=== PATIENT | male | born 1965 | race American Indian/Alaskan Native ===

== ENCOUNTER 2021-09-05 18:41 | Emergency (ER) | payer SELFPAY ==
[2021-09-06 01:39] VITALS: BP 218/113
[2021-09-06] MEDS ORDERED: IBUPROFEN 600 MG TAB PO ONE (02:04)
[2021-09-06] MEDS ORDERED: predniSONE 20 MG TAB PO ONE (02:04)
[2021-09-06] MEDS ORDERED: HYDROcodone/ACETAMINOPHEN 7.5-325MG TAB PO ONE (02:04)
[2021-09-06] MEDS ORDERED: ONDANSETRON 4 MG ODT TAB PO ONE (02:05)
[2021-09-06 02:48] LABS: Basophils # (Auto) 0.1 K/mm3 (0.0-0.1); Basophils % (Auto) 0.5 % (0.0-1.8); Eosinophils # (Auto) 0.1 K/mm3 (0.0-0.4); Eosinophils % (Auto) 0.5 % (0.0-4.3); Hematocrit 39.9 % (35.5-45.6); Hemoglobin 13.4 gm/dl (11.8-15.2); Lymphocytes % (Auto) 7.9 % (13.4-35.0); Mean Corpuscular HGB Conc 34 % (32-34); Mean Corpuscular Volume 92 fl (84-94); Monocytes # (Auto) 1.5 K/mm3 (0.0-0.8); Monocytes % (Auto) 12.3 % (0.0-7.3); Platelet Count 436 K/mm3 (140-440); Red Blood Count 4.35 M/mm3 (3.65-5.03); Red Cell Distribution Width 14.8 % (13.2-15.2)
[2021-09-06 03:24] LABS: Albumin 3.4 g/dL (3.9-5); Calcium 8.8 mg/dL (8.4-10.2)
[2021-09-06 03:58] LABS: Uric Acid 9.9 mg/dL (3.5-7.6)
--- NOTE | 2021-09-06 04:53 | XRay Report ---
LEFT KNEE 3 VIEW INDICATION / CLINICAL INFORMATION: Pain - chronic. COMPARISON: None available. FINDINGS: BONES / JOINT(S): No acute fracture or subluxation. Mild osteoarthritis. Small joint effusion. SOFT TISSUES: No significant abnormality. ADDITIONAL FINDINGS: None. IMPRESSION: 1. No acute findings. Signer Name: Olegario Hernandez MD Signed: 09/06/2021 4:49 AM Workstation Name: [id number]
--- NOTE | 2021-09-06 04:54 | XRay Report ---
LEFT ANKLE 3 VIEWS INDICATION / CLINICAL INFORMATION: pain, swelling. COMPARISON: None available. FINDINGS: BONES / JOINT(S): No acute fracture or subluxation. Previous fixation of the distal fibula and high a nkle sprain fixation. Moderate DJD in the tibiotalar articulation. SOFT TISSUES: No significant abnormality. ADDITIONAL FINDINGS: None. IMPRESSION: 1. No acute findings. Signer Name: Olegario Hernandez MD Signed: 09/06/2021 4:49 AM Workstation Name: [id number]
--- NOTE | 2021-09-06 05:40 | Emergency Department Report ---
ED Extremity Problem HPI - General Chief complaint: Extremity Problem,Nontraumatic Stated complaint: LEFT LEG PAIN Source: patient Mode of arrival: Wheelchair Limitations: Physical Limitation - History of Present Illness Initial comments: Patient is a 56-year-old -[place] male with a history of hypertension, CKD, chronic gouty arthropathy and chronic osteoarthritis who presents to the ED with complaint of acute exacerbation of his chronic osteoarthritis and gouty arthropathy characterized by left knee joint pain, left ankle pain and swelling for the last 1 week, worse in the last 2 days. Patient states that he is unable to bear weight on the left leg because of worsening left ankle and left knee pain. Patient denies traumatic injury, fall, dizziness, syncope, chest pain or shortness of breath, nausea and vomiting, fever, chills, back pain, hip pain, heavy lifting or nausea and vomiting. MD Complaint: extremity pain (Left knee and left ankle pain and swelling), extremity swelling, joint swelling (Left knee and left ankle pain and swelling), joint paint (Left ankle pain and swelling) -: Gradual, year(s) (2) Location: left, lower extremity (Left ankle and knee pain), knee, other (Left ankle and knee pain) History of Same: Yes (Chronic gout and osteoarthritis) -: No myalgia, Yes arthralgia (Left knee and ankle pain), No fever, No associated dyspnea, No associated chest pain Severity scale (0 -10): 8 Quality: aching, sharp Consistency: constant Improves with: nothing Worsens with: weight bearing, walking, exertion, palpation Associated Symptoms: denies other symptoms, arthralgias (Right knee and ankle pain). denies: chest pain, shortness of breath, fever, myalgias - Related Data Previous Rx's Medication Instructions Recorded Last Taken Type cloNIDine [Catapres] 0.1 mg PO BID #60 tablet 03/02/14 Unknown Rx Acetaminophen [Tylenol] 500 mg PO Q6HR PRN #60 tablet 09/06/21 Unknown Rx Colchicine [Colcrys] 0.6 mg PO DAILY #30 tab 09/06/21 Unknown Rx predniSONE [Deltasone] 60 mg PO QDAY #15 tab 09/06/21 Unknown Rx traMADoL [Ultram] 50 mg PO Q6HR PRN #12 tablet 09/06/21 Unknown Rx Allergies Allergy/AdvReac Type Severity Reaction Status Date / Time No Known Allergies Allergy Unverified 03/02/14 16:06 ED Review of Systems ROS: Stated complaint: LEFT LEG PAIN Other details as noted in HPI Constitutional: denies: chills, fever Eyes: denies: eye pain, eye discharge, vision change ENT: denies: ear pain, throat pain Respiratory: denies: cough, shortness of breath, wheezing Cardiovascular: denies: chest pain, palpitations Endocrine: no symptoms reported Gastrointestinal: denies: abdominal pain, nausea, vomiting, diarrhea Genitourinary: denies: urgency, dysuria Musculoskeletal: joint swelling (Left knee and ankle pain and swelling), arthralgia (Left knee and ankle pain with swelling). denies: back pain Skin: denies: rash, lesions Neurological: denies: headache, weakness, paresthesias Psychiatric: denies: anxiety, depression Hematological/Lymphatic: denies: easy bleeding, easy bruising ED Past Medical Hx - Past Medical History Hx Hypertension: Yes Hx Renal Disease: Yes (CKD stage II) Hx Arthritis: Yes Additional medical history: Gouty arthropathy - Social History Smoking Status: Never Smoker Substance Use Type: None - Medications Home Medications: Home Medications Medication Instructions Recorded Confirmed Last Taken Type cloNIDine [Catapres] 0.1 mg PO BID #60 tablet 03/02/14 Unknown Rx Acetaminophen [Tylenol] 500 mg PO Q6HR PRN #60 tablet 09/06/21 Unknown Rx Colchicine [Colcrys] 0.6 mg PO DAILY #30 tab 09/06/21 Unknown Rx predniSONE [Deltasone] 60 mg PO QDAY #15 tab 09/06/21 Unknown Rx traMADoL [Ultram] 50 mg PO Q6HR PRN #12 tablet 09/06/21 Unknown Rx ED Physical Exam - General Limitations: No Limitations, Physical Limitation General appearance: alert, in no apparent distress - Head Head exam: Present: atraumatic, normocephalic, normal inspection - Eye Eye exam: Present: normal appearance, PERRL, EOMI Pupils: Present: normal accommodation - ENT ENT exam: Present: normal exam, normal orophraynx, mucous membranes moist, TM's normal bilaterally, normal external ear exam - Neck Neck exam: Present: normal inspection, full ROM. Absent: tenderness - Respiratory Respiratory exam: Present: normal lung sounds bilaterally. Absent: respiratory distress, wheezes, rales, stridor, chest wall tenderness, accessory muscle use - Cardiovascular Cardiovascular Exam: Present: regular rate, normal rhythm, normal heart sounds. Absent: systolic murmur, diastolic murmur, rubs, gallop - GI/Abdominal GI/Abdominal exam: Present: soft, normal bowel sounds. Absent: tenderness, guarding, rebound, hyperactive bowel sounds, hypoactive bowel sounds, organomegaly - Extremities Exam Extremities exam: Present: normal inspection, tenderness (Palpable left knee and left ankle tenderness with swelling and limited range of motion due to pain), normal capillary refill, joint swelling. Absent: full ROM (Limited range of motion of left ankle and left knee joint due to pain), pedal edema, calf tende rness - Back Exam Back exam: Present: normal inspection, full ROM. Absent: tenderness, CVA tenderness (R), CVA tenderness (L), muscle spasm, paraspinal tenderness - Neurological Exam Neurological exam: Present: alert, oriented X3, CN II-XII intact, normal gait, reflexes normal - Psychiatric Psychiatric exam: Present: normal affect, normal mood - Skin Skin exam: Present: warm, dry, intact, normal color. Absent: rash ED Course Vital Signs 09/06/21 09/06/21 01:36 01:45 Temperature 98.2 F Pulse Rate 82 Respiratory 18 18 Rate Blood Pressure 218/113 O2 Sat by Pulse 97 Oximetry ED Medical Decision Making - Lab Data Result diagrams: 09/06/21 02:16 09/06/21 02:16 - Radiology Data Radiology results: report reviewed, image reviewed [facility] [address] [place] [address] XRay Report Signed Patient: ORI MILLARD MR#: [id number] : 1965 Acct:[id number] Age/Sex: 56 / M ADM Date: 09/05/21 Loc: ED Attending Dr: Ordering Physician: COLE LOWE Date of Service: 09/06/21 Procedure(s): XR knee 3V LT Accession Number(s): [id number] cc: COLE LOWE Fluoro Time In Minutes: LEFT KNEE 3 VIEW INDICATION / CLINICAL INFORMATION: Pain - chronic. COMPARISON: None available. FINDINGS: BONES / JOINT(S): No acute fracture or subluxation. Mild osteoarthritis. Small joint effusion. SOFT TISSUES: No significant abnormality. ADDITIONAL FINDINGS: None. IMPRESSION: 1. No acute findings. Signer Name: Olegario Hernandez MD Signed: 09/06/2021 4:49 AM Workstation Name: [id number] Transcribed By: CHANTAL Dictated By: Olegario Hernandez MD Electronically Authenticated By: Olegario Hernandez MD Signed Date/Time: 09/06/21448 DD/ 7 TD/TT: [facility] [address] [place] [address] XRay Report Signed Patient: ORI MILLARD MR#: [id number] : 1965 Acct:[id number] Age/Sex: 56 / M ADM Date: 09/05/21 Loc: ED Attending Dr: Ordering Physician: COLE LOWE Date of Service: 09/06/21 Procedure(s): XR ankle 3+V LT Accession Number(s): [id number] cc: COLE LOWE Fluoro Time In Minutes: LEFT ANKLE 3 VIEWS INDICATION / CLINICAL INFORMATION: pain, swelling. COMPARISON: None available. FINDINGS: BONES / JOINT(S): No acute fracture or subluxation. Previous fixation of the distal fibula and high ankle sprain fixation. Moderate DJD in the tibiotalar articulation. SOFT TISSUES: No significant abnormality. ADDITIONAL FINDINGS: None. IMPRESSION: 1. No acute findings. Signer Name: Olegario Hernandez MD Signed: 09/06/2021 4:49 AM Workstation Name: [id number] Transcribed By: CHANTAL Dictated By: Olegario Hernandez MD Electronically Authenticated By: Olegario Hernandez MD Signed Date/Time: 09/06/21448 DD/ 8 TD/TT: - Medical Decision Making This is a 56-year-old -[place] male with a history of hypertension, CKD, chronic gouty arthropathy and chronic osteoarthritis who presents to the ED with complaint of acute exacerbation of his chronic osteoarthritis and gouty arthropathy characterized by left knee joint pain, left ankle pain and swelling for the last 1 week, worse in the last 2 days. Patient states that he is unable to bear weight on the left leg because of worsening left ankle and left knee pain. In the ED, patient is alert and oriented x3 and is not in any distress but appears to be in significant pain and is hypertensive in triage. Patient was treated for pain in the ED. Lab test results were reviewed and showed leukocytosis of 12,300, BUN of 22, creatinine of 2.2, uric acid level of 9.9 and mild hypokalemia of 3.4 mmol/L. Left knee x-ray showed mild degenerative joint disease. No acute fractures or subluxations. Left ankle x-ray also showed moderate degenerative joint disease and a previous fixation of the distal fibula and high ankle sprain fixation. Otherwise no acute fractures or subluxations. On reevaluation, patient's pain is well controlled medication. Patient symptoms are likely due to acute exacerbation of his chronic osteoarthritis and gouty arthropathy. Patient was therefore discharged home on medications and advised to follow-up with his primary care physician in 7 to 10 days for reevaluation or return to the ED immediately if symptoms get worse. - Differential Diagnosis Chronic osteoarthritis; gouty arthropathy; muscle strain; muscle spasm Critical care attestation.: If time is entered above; I have spent that time in minutes in the direct care of this critically ill patient, excluding procedure time. ED Disposition Clinical Impression: Chronic osteoarthritis, Chronic gouty arthropathy Disposition: 01 HOME / SELF CARE / HOMELESS Is pt being admited?: No Does the pt Need Aspirin: No Condition: Stable Instructions: Osteoarthritis, Arthritis, [id number], Low-Purine Eating Plan Additional Instructions: All lab test results were reviewed, it showed significantly elevated uric acid level consistent with gout, and left knee and left ankle x-rays showed degen erative joint disease. Therefore your pain is likely due to degenerative joint disease and acute on chronic gouty arthropathy. Therefore take medications with food, drink plenty of fluids and follow-up with your primary care physician in 7 to 10 days for reevaluation. Return to the ED immediately if symptoms get worse. Prescriptions: Acetaminophen [Tylenol] 500 mg PO Q6HR PRN #60 tablet PRN Reason: Pain , Severe (7-10) Colchicine [Colcrys] 0.6 mg PO DAILY #30 tab predniSONE [Deltasone] 60 mg PO QDAY #15 tab traMADoL [Ultram] 50 mg PO Q6HR PRN #12 tablet PRN Reason: Pain Referrals: [facility] [Provider Group] - 7-10 days Time of Disposition: 05:45 Print Language: VIETNAMESE
== END 2021-09-06 06:09 | disposition home or self-care (01) ==
LOC: ED 18:41
DX: M25.572 Pain in left ankle and joints of left foot (principal); M19.90 Unspecified osteoarthritis, unspecified site; M1A.9XX0 Chronic gout, unspecified, without tophus (tophi); I12.9 Hypertensive chronic kidney disease with stage 1 through stage 4 chronic kidney disease, or unspecified chronic kidney disease; N18.2 Chronic kidney disease, stage 2 (mild); Z79.899 Other long term (current) drug therapy
CPT/HCPCS: 36415; 80053; 84550; 85025; 99284; J3490; Q0162

== ENCOUNTER 2021-12-17 08:32 | Emergency (ER) | payer SELFPAY ==
[2021-12-17] MEDS ORDERED: IBUPROFEN 800 MG TAB PO ONE (11:29)
--- NOTE | 2021-12-17 11:31 | Emergency Department Report ---
Upper Extremity - HPI Chief Complaint: Extremity Injury, Upper Stated Complaint: RIGHT HAND SWOLLEN Time Seen by Provider: 12/17/21 11:25 Upper Extremity: Left Wrist Occurred When: >5 Days Severity: moderate Symptoms: Yes Pain with Movement, Yes Swelling Other History: 56-year-old male presenting with complaint of nontraumatic swelling and pain to the left wrist for the past several days. ED Review of Systems ROS: Stated complaint: RIGHT HAND SWOLLEN Other details as noted in HPI Constitutional: denies: chills, fever Respiratory: denies: cough, shortness of breath, wheezing Cardiovascular: denies: chest pain, palpitations Gastrointestinal: denies: abdominal pain, nausea, diarrhea Genitourinary: denies: urgency, dysuria Musculoskeletal: joint swelling, arthralgia Skin: denies: rash, lesions Neurological: denies: headache, weakness, paresthesias Psychiatric: denies: anxiety, depression ED Past Medical Hx - Past Medical History Previous Medical History?: Yes Hx Hypertension: Yes Hx CVA: No Hx Heart Attack/AMI: No Hx Congestive Heart Failure: No Hx Diabetes: No Hx Deep Vein Thrombosis: No Hx Pulmonary Embolism: No Hx GERD: No Hx Liver Disease: No Hx Renal Disease: Yes (CKD stage II) Hx of Cancer: No Hx Sickle Cell Disease: No Hx Arthritis: Yes Hx Headaches / Migraines: No Hx Seizures: No Hx Kidney Stones: No Hx Psychiatric Treatment: No Hx Asthma: No Hx COPD: No Hx Tuberculosis: No Hx Dementia: No Hx HIV: No Additional medical history: Gouty arthropathy - Surgical History Past Surgical History?: Yes Hx Coronary Stent: No Hx Open Heart Surgery: No Hx Pacemaker: No Hx Internal Defibrillator: No Hx Cholecystectomy: No Hx Appendectomy: No Hx Breast Surgery: No Additional Surgical History: ANKLE SURGERY - Social History Smoking Status: Former Smoker - Medications Home Medications: Home Medications Medication Instructions Recorded Confirmed Last Taken Type cloNIDine [Catapres] 0.1 mg PO BID #60 tablet 03/02/14 Unknown Rx Acetaminophen [Tylenol] 500 mg PO Q6HR PRN #60 tablet 09/06/21 Unknown Rx Colchicine [Colcrys] 0.6 mg PO DAILY #30 tab 09/06/21 Unknown Rx predniSONE [Deltasone] 60 mg PO QDAY #15 tab 09/06/21 Unknown Rx traMADoL [Ultram] 50 mg PO Q6HR PRN #12 tablet 09/06/21 Unknown Rx Ibuprofen [Motrin 800 MG tab] 800 mg PO Q8HR PRN #60 tablet 12/17/21 Unknown Rx Upper Extremity Exam - Exam General: Vital signs noted. No distress. Alert and acting appropriately. Head and Torso: No HEENT Abnormality, No Chest/Lungs Abnormality, No Abdominal Tenderness, No Back Tenderness Shoulder Exam: Yes Normal Range of Motion in Shoulder, No Shoulder Tenderness, No Clavicle Tenderness, No Shoulder Deformity Arm Exam: No Arm/Humerus Tenderness, No Arm Deformity Elbow: Yes Normal Range of Motion in Elbow, No Elbow Tenderness, No Elbow Deformity Forearm: No Forearm Tenderness, No Forearm Deformity, No Pain with Pronation, No Pain with Supination Wrist: Yes Wrist Tenderness (Tenderness in left wrist), Yes Wrist Deformity (Swelling in left wrist), No Snuffbox Tenderness, No Pain with Axial Thumb Compression ED Course Vital Signs 12/17/21 12/17/21 12/17/21 08:58 10:21 11:03 Temperature 98.9 F 98.7 F Pulse Rate 71 71 Respiratory 18 18 Rate Blood Pressure 246/121 267/140 [Left] O2 Sat by Pulse 99 97 Oximetry 12/17/21 11:18 Temperature Pulse Rate Respiratory 18 Rate Blood Pressure [Left] O2 Sat by Pulse 97 Oximetry ED Medical Decision Making - Lab Data Result diagrams: 12/17/21 13:30 12/17/21 13:30 - Medical Decision Making CBC and CMP grossly unremarkable. Uric acid however is elevated at 10.7. Suspect likely gout. X-ray of the wrist shows no acute bony abnormality however does show mild soft tissue swelling. Patient given ibuprofen here. Will discharge with Rx for ibuprofen with instructions to follow-up with PCP at his earliest convenience. Critical care attestation.: If time is entered above; I have spent that time in minutes in the direct care of this critically ill patient, excluding procedure time. ED Disposition Clinical Impression: Gout Disposition: 01 HOME / SELF CARE / HOMELESS Is pt being admited?: No Does the pt Need Aspirin: No Condition: Stable Additional Instructions: Please follow-up with your primary doctor at your earliest convenience. You may return if your symptoms worsen. Referrals: PRIMARY CARE, [Primary Care Provider] - 3-5 Days Time of Disposition: 15:53
[2021-12-17] MEDS ORDERED: cloNIDine 0.2 MG TAB PO ONE (12:18)
--- NOTE | 2021-12-17 12:19 | XRay Report ---
RIGHT WRIST 2 VIEWS INDICATION: Injury. COMPARISON: None. IMPRESSION: There is moderate diffuse soft tissue swelling or edema. No acute osseous abnormality i s detected. Minimal osteoarthritic changes are identified. Signer Name: Josias Marie Jr, MD Signed: 12/17/2021 12:14 PM Workstation Name: [id number]
[2021-12-17 14:38] LABS: Basophils % (Auto) 0.4 % (0.0-1.8); Eosinophils # (Auto) 0.1 K/mm3 (0.0-0.4); Eosinophils % (Auto) 0.7 % (0.0-4.3); Hematocrit 39.4 % (35.5-45.6); Hemoglobin 13.4 gm/dl (11.8-15.2); Lymphocytes # (Auto) 0.8 K/mm3 (1.2-5.4); Lymphocytes % (Auto) 7.8 % (13.4-35.0); Mean Corpuscular HGB Conc 34 % (32-34); Mean Corpuscular Volume 92 fl (84-94); Monocytes # (Auto) 1.1 K/mm3 (0.0-0.8); Monocytes % (Auto) 10.2 % (0.0-7.3); Platelet Count 305 K/mm3 (140-440); Red Blood Count 4.29 M/mm3 (3.65-5.03); Red Cell Distribution Width 14.8 % (13.2-15.2)
[2021-12-17 15:48] LABS: Calcium 8.3 mg/dL (8.4-10.2); Uric Acid 10.4 mg/dL (3.5-7.6)
[2021-12-17] MEDS ORDERED: hydrALAZINE 20 MG/1 ML INJ IV ONE (16:44)
[2021-12-17 18:02] VITALS: BP 190/103
== END 2021-12-17 17:37 | disposition home or self-care (01) ==
LOC: ED 08:32
DX: M10.9 Gout, unspecified (principal); I12.9 Hypertensive chronic kidney disease with stage 1 through stage 4 chronic kidney disease, or unspecified chronic kidney disease; N18.2 Chronic kidney disease, stage 2 (mild); M19.90 Unspecified osteoarthritis, unspecified site; Z90.49 Acquired absence of other specified parts of digestive tract
CPT/HCPCS: 36415; 73100; 80048; 84550; 85025; 96374; 99284; J0360

== ENCOUNTER 2021-12-27 16:43 | Emergency (ER) | payer SELFPAY ==
--- NOTE | 2021-12-27 17:26 | Event Note ---
ED Screening Note ED Screening Note: 56-year-old male with history of hypertension presents with blood pressure elevation. Patient reports out of his blood pressure medicines for over 3 days. Unknown medications [from chart review appears to be clonidine] Denies headache dizziness or vision changes, no chest pain or shortness of breath. No acute distress, playing games on his cellular device. This initial assessment/diagnostic orders/clinical plan/treatment(s) is/are subject to change based on patients health status, clinical progression and re- assessment by fellow clinical providers in the ED. Further treatment and workup at subsequent clinical providers discretion. Patient/guardian urged not to elope from the ED as their condition may be serious if not clinically assessed and managed. Initial orders include: Labs, EKG,
[2021-12-28] MEDS ORDERED: cloNIDine 0.2 MG TAB PO STA (06:47)
--- NOTE | 2021-12-28 06:58 | Emergency Department Report ---
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 He was here a while ago for gout flareup and thought he had got a prescription at that time but when he realized he he did not he will he decided to wait till he came back to town to get the necessary prescriptions. He states he did not come to emergency department because of any symptoms only to get a blood pressure medicine refilled denies any chest pain, shortness of breath, headache, dizziness, palpitations, nausea, vomiting, presyncope, tinnitus, blurry vision. Severity scale (0 -10): 0 - Related Data Previous Rx's Medication Instructions Recorded Last Taken Type Acetaminophen [Tylenol] 500 mg PO Q6HR PRN #60 tablet 09/06/21 Unknown Rx predniSONE [Deltasone] 60 mg PO QDAY #15 tab 09/06/21 Unknown Rx traMADoL [Ultram] 50 mg PO Q6HR PRN #12 tablet 09/06/21 Unknown Rx Ibuprofen [Motrin 800 MG tab] 800 mg PO Q8HR PRN #60 tablet 12/17/21 Unknown Rx Amlodipine Besylate [Norvasc] 5 mg PO DAILY #30 12/28/21 Unknown Rx Colchicine [Colcrys] 0.6 mg PO DAILY #30 tab 12/28/21 Unknown Rx Indomethacin [Indocin] 25 mg PO Q8H PRN #20 cap 12/28/21 Unknown Rx cloNIDine [Catapres] 0.1 mg PO BID #60 tablet 12/28/21 Unknown Rx Allergies Allergy/AdvReac Type Severity Reaction Status Date / Time No Known Allergies Allergy Verified 12/17/21 09:04 ED Review of Systems ROS: Stated complaint: HIGH BLOOD PRESSURE Other details as noted in HPI Comment: All other systems reviewed and negative ED Past Medical Hx - Past Medical History Hx Hypertension: Yes Hx CVA: No Hx Heart Attack/AMI: No Hx Congestive Heart Failure: No Hx Diabetes: No Hx Deep Vein Thrombosis: No Hx Pulmonary Embolism: No Hx GERD: No Hx Liver Disease: No Hx Renal Disease: Yes (CKD stage II) Hx Sickle Cell Disease: No Hx Arthritis: Yes Hx Headaches / Migraines: No Hx Seizures: No Hx Kidney Stones: No Hx Psychiatric Treatment: No Hx Asthma: No Hx COPD: No Hx Tuberculosis: No Hx Dementia: No Hx HIV: No Additional medical history: Gouty arthropathy - Surgical History Hx Coronary Stent: No Hx Open Heart Surgery: No Hx Pacemaker: No Hx Internal Defibrillator: No Hx Cholecystectomy: No Hx Appendectomy: No Hx Breast Surgery: No Additional Surgical History: ANKLE SURGERY - Social History Smoking Status: Former Smoker - Medications Home Medications: Home Medications Medication Instructions Recorded Confirmed Last Taken Type Acetaminophen [Tylenol] 500 mg PO Q6HR PRN #60 tablet 09/06/21 Unknown Rx predniSONE [Deltasone] 60 mg PO QDAY #15 tab 09/06/21 Unknown Rx traMADoL [Ultram] 50 mg PO Q6HR PRN #12 tablet 09/06/21 Unknown Rx Ibuprofen [Motrin 800 MG tab] 800 mg PO Q8HR PRN #60 tablet 12/17/21 Unknown Rx Amlodipine Besylate [Norvasc] 5 mg PO DAILY #30 12/28/21 Unknown Rx Colchicine [Colcrys] 0.6 mg PO DAILY #30 tab 12/28/21 Unknown Rx Indomethacin [Indocin] 25 mg PO Q8H PRN #20 cap 12/28/21 Unknown Rx cloNIDine [Catapres] 0.1 mg PO BID #60 tablet 12/28/21 Unknown Rx ED Physical Exam - General Limitations: No Limitations General appearance: alert, in no apparent distress - Head Head exam: Present: atraumatic, normocephalic - Eye Eye exam: Present: normal appearance, PERRL, EOMI Pupils: Present: normal accommodation - ENT ENT exam: Present: mucous membranes moist - Neck Neck exam: Present: normal inspection - Respiratory Respiratory exam: Present: normal lung sounds bilaterally. Absent: respiratory distress - Cardiovascular Cardiovascular Exam: Present: regular rate, normal rhythm. Absent: systolic murmur, diastolic murmur, rubs, gallop - GI/Abdominal GI/Abdominal exam: Present: soft, normal bowel sounds - Rectal Rectal exam: Present: deferred - Extremities Exam Extremities exam: Present: normal inspection, pedal edema. Absent: calf tenderness - Back Exam Back exam: Present: normal inspection. Absent: CVA tenderness (R), CVA te nderness (L) - Neurological Exam Neurological exam: Present: alert, oriented X3 - Psychiatric Psychiatric exam: Present: normal affect, normal mood - Skin Skin exam: Present: warm, dry, intact, normal color. Absent: rash ED Course Vital Signs 12/27/21 17:18 Temperature 98.9 F Pulse Rate 65 Respiratory 14 Rate Blood Pressure 204/117 [Right] O2 Sat by Pulse 97 Oximetry ED Medical Decision Making - Medical Decision Making Presents to the emergency department complaining of high blood pressure. Patient is otherwise asymptomatic without confusion, chest pain, hematuria, or SOB. BP today is 204/ 114_ Patient is currently on medication but is running out and seeks a medication refill Doubt CV, AMI, heart failure, renal infarction or failure or other end organ damage. Disposition:Discussed with patient their elevated blood pressure and need for close outpatient management of their hypertension. Will provide a prescription for the patients previous antihypertensive medication and arrange for the patient to follow up in a primary care clinic Disposition: Discussed with patient their elevated blood pressure and need for close outpatient management of their hypertension. Will provide a prescription for amlodipine 5mg PO daily and arrange for the patient to follow up in a primary care clinic Critical care attestation.: If time is entered above; I have spent that time in minutes in the direct care of this critically ill patient, excluding procedure time. ED Disposition Clinical Impression: HTN (hypertension), Medication refill, Gout Disposition: HOME / SELF CARE / HOMELESS Is pt being admited?: No Does the pt Need Aspirin: No Condition: Stable Instructions: Coronary Artery Disease, Male, Low-Purine Eating Plan, Natriuretic Peptides Test, Preventing Hypertension, Intracerebral Hemorrhage, Managing Your Hypertension, Hypertension (ED) Prescriptions: cloNIDine [Catapres] 0.1 mg PO BID #60 tablet Colchicine [Colcrys] 0.6 mg PO DAILY #30 tab Indomethacin [Indocin] 25 mg PO Q8H PRN #20 cap PRN Reason: gout pain Amlodipine Besylate [Norvasc] 5 mg PO DAILY #30 Referrals: BLESSING LALA MD [Staff Physician] - 3-5 Days
[2021-12-28 07:09] VITALS: BP 232/112
--- NOTE | 2021-12-28 09:41 | Electrocardiograph Report ---
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
== END 2021-12-28 09:35 | disposition home or self-care (01) ==
LOC: ED 16:43
DX: I12.9 Hypertensive chronic kidney disease with stage 1 through stage 4 chronic kidney disease, or unspecified chronic kidney disease (principal); N18.2 Chronic kidney disease, stage 2 (mild); Z76.0 Encounter for issue of repeat prescription; M10.9 Gout, unspecified; Z98.890 Other specified postprocedural states; Z87.891 Personal history of nicotine dependence
CPT/HCPCS: 93005; 99282